=== PATIENT | male | born 1960 | race Caucasian/White ===

== ENCOUNTER → 2017-04-12 09:43 | Outpatient (CLI) | payer OTHER, SELFPAY ==
[2016-11-21 14:26] VITALS: BMI 35.6
[2017-04-12 12:49] LABS: AST(SGOT) 32 U/L (15-37); Alanine Aminotransfer ALT/SGPT 57 U/L (16-61); Albumin, Serum 4.1 g/dL (3.2-5.0); Alkaline Phosphatase 68 U/L (45-117); Bilirubin, Direct 0.12 mg/dL (0.00-0.30); Cholesterol 170 mg/dL (200); Globulin 3.4 g/dL (2.2-4.2); High Density Lipoprotein 30 mg/dL; Protein, Total 7.5 g/dL (6.4-8.2); Triglycerides 556 mg/dL
== END ==
PROVIDERS: Family Provider Family Medicine; PCP Family Medicine; Visit Provider Internal Medicine Cardiovascular Disease
DX: E78.5 Hyperlipidemia, unspecified (principal)
CPT/HCPCS: 36415; 80061; 80076

== ENCOUNTER → 2017-10-24 11:31 | Outpatient (CLI) | payer OTHER, SELFPAY ==
[2016-11-21 14:26] VITALS: BMI 35.6
[2017-10-24 13:45] LABS: AST(SGOT) 25 U/L (15-37); Alanine Aminotransfer ALT/SGPT 53 U/L (16-61); Albumin, Serum 4.1 g/dL (3.2-5.0); Alkaline Phosphatase 63 U/L (45-117); Anion Gap 9 (5-15); BUN 11 mg/dL (7-18); BUN/Creat Ratio 13.4 RATIO (10-20); Bilirubin, Direct 0.11 mg/dL (0.00-0.30); Calcium,Total 9.7 mg/dL (8.5-10.1); Chloride 104 mmol/L (98-107); Cholesterol 193 mg/dL (200); Creatinine, Serum 0.82 mg/dL (0.70-1.30); EST Glomerular Filtration Rate 102 mL/min (>60); Est Glom Filt Rate - Afr Amer 123 mL/min (>60); Globulin 3.4 g/dL (2.2-4.2); Glucose 93 mg/dL (74-106); High Density Lipoprotein 31 mg/dL; Potassium 4.5 mmol/L (3.5-5.1); Protein, Total 7.5 g/dL (6.4-8.2); Sodium Level 141 mmol/L (136-145); Thyroid Stim Hormone (TSH) 1.59 uIU/mL (0.358-3.74); Triglycerides 502 mg/dL
== END ==
PROVIDERS: Family Provider Family Medicine; PCP Family Medicine; Visit Provider Internal Medicine Cardiovascular Disease
DX: E78.5 Hyperlipidemia, unspecified (principal); Z95.5 Presence of coronary angioplasty implant and graft
CPT/HCPCS: 36415; 80048; 80061; 80076; 84443

== ENCOUNTER → 2018-05-23 | Outpatient (CLI) | payer OTHER, SELFPAY ==
[2016-11-21 14:26] VITALS: BMI 35.6
[2018-04-17 10:43] VITALS: BMI 32.8
[2018-05-23 14:44] LABS: AST(SGOT) 22 U/L (15-37); Alanine Aminotransfer ALT/SGPT 43 U/L (16-61); Albumin, Serum 4.5 g/dL (3.2-5.0); Alkaline Phosphatase 48 U/L (45-117); Bilirubin, Direct 0.14 mg/dL (0.00-0.30); Cholesterol 244 mg/dL (200); Globulin 3.2 g/dL (2.2-4.2); High Density Lipoprotein 35 mg/dL; Protein, Total 7.7 g/dL (6.4-8.2); Triglycerides 370 mg/dL; Very Low Density Lipoprotein 74 mg/dL (5-40)
== END | disposition home or self-care (01) ==
PROVIDERS: Family Provider Family Medicine; PCP Family Medicine; Referring Provider Internal Medicine Cardiovascular Disease; Visit Provider Internal Medicine Cardiovascular Disease
DX: E78.5 Hyperlipidemia, unspecified (principal)
CPT/HCPCS: 36415; 80061; 80076

== ENCOUNTER → 2018-11-06 | Outpatient (CLI) | payer OTHER, SELFPAY ==
[2016-11-21 14:26] VITALS: BMI 35.6
[2018-11-06 08:10] VITALS: BMI 33.7
[2018-11-06 16:30] LABS: AST(SGOT) 31 U/L (15-37); Alanine Aminotransfer ALT/SGPT 57 U/L (16-61); Albumin, Serum 4.6 g/dL (3.2-5.0); Alkaline Phosphatase 48 U/L (45-117); Bilirubin, Direct 0.15 mg/dL (0.00-0.30); Cholesterol 264 mg/dL (200); Globulin 3.1 g/dL (2.2-4.2); High Density Lipoprotein 32 mg/dL; Protein, Total 7.7 g/dL (6.4-8.2); Triglycerides 576 mg/dL
== END | disposition home or self-care (01) ==
PROVIDERS: Referring Provider Internal Medicine Cardiovascular Disease; Visit Provider Internal Medicine Cardiovascular Disease
DX: E78.1 Pure hyperglyceridemia (principal); E78.5 Hyperlipidemia, unspecified
CPT/HCPCS: 36415; 80061; 80076

== ENCOUNTER 2019-06-01 18:23 | Emergency (ER) | payer OTHER, SELFPAY ==
[2016-11-21 14:26] VITALS: BMI 35.6
[2019-05-14 10:43] VITALS: BMI 33.3
[2019-06-01 18:24] VITALS: BP 157/96; PULSE 102; RESP 16; TEMP 36.7; O2SAT 96; BMI 34.5
--- NOTE | 2019-06-01 18:33 | EKG12_ITS ---
Test Reason : CP Blood Pressure : / mmHG Vent. Rate : 102 BPM Atrial Rate : 102 BPM P-R Int : 162 ms QRS Dur : 098 ms QT Int : 344 ms P-R-T Axes : 045 -21 072 degrees QTc Int : 448 ms Sinus tachycardia with Premature supraventricular complexes Leftward axis Low voltage QRS (LIMB LEADS) Confirmed by ROSSANA SHAVER, PARESH ([id number]), editor newspaper [employer] NOLASCO ([id number]) on 06/03/2019 10:04:44 AM Referred By: LOWELL Confirmed By:PARESH TRACY MD
[2019-06-01 18:42] VITALS: O2SAT 98
[2019-06-01] MEDS: Aspirin 81 MG TAB.CHEW 324 MG PO (18:48)
--- NOTE | 2019-06-01 18:55 | ED.VISSUMM ---
- ER Visit Summary Date of Service: 06/01/19 Chief Complaint: Chest pain and shortness of breath History of Present Illness: The patient is a 59 M history of CAD with 2 cardiac stents. Also sleep apnea, hypertension, hyperlipidemia and metabolic syndrome. Patient is a semiretired physician. States for the last 3 days has had intermittent left-sided chest discomfort. He is also had shortness of breath and orthopnea at night. He denies any hemoptysis. He denies any pleuritic pain. He is never had a DVT or PE. His last travel was in March. He denies any leg pain or swelling. He denies any exertional chest pain exertional shortness of breath.. He was off his Plavix and aspirin for some time and has recently restarted those. Physical Examination: Older male no acute distress vital signs stable afebrile. Pulse ox 90% room air no signs hypoxia. H EENT exam unremarkable. Neck nontender no JVD. Lungs clear to auscultation bilaterally. Heart regular rhythm rate about 100 no murmur. Chest wall only minimal left-sided tenderness. No ecchymosis or bruising. No subcu air or crepitance. Abdomen soft nontender normal bowel sounds no peritoneal signs. Patient moving all 4 extremities. Equal symmetrical radial pulses. Normal charge weigher strength. Normal dorsi plantarflexion. Calves are nontender without edema or cords. Neurologically is awake alert with no focal motor deficits. Test Results: EKG shows sinus tachycardia rate of 102. No signs of [place] or ischemia. There is any change from prior EKG from 3 years ago. Chest x-ray normal cardiac silhouette mediastinum. Read as normal. CBC white count of 6. Hemoglobin 15. Chemistries unremarkable potassium of 3.1. Normal creatinine and gap. Troponin normal. D-dimer normal. Repeat exam patient is resting comfortably at 2015 p.m. Currently symptom-free. He and I went over all his test results. He understands that this is chest pain without a specific diagnosis. I did explain to him I was concerned because of his history of coronary disease and stents. He does not want to be admitted to the hospital. He will follow-up with his hris coordinator on Monday and follow-up with possible outpatient stress testing. He understands that I cannot rule out this being a cardiac etiology. And knows to return if worse. Emergency Department Course and Treatment: Patient undergo cardiac work-up. His last travel was in March but I will also have them run a d-dimer due to the atypical nature of his chest pain. He has not had any fever or any significant cough. He will be treated with p.o. aspirin. Treatment Plan: Continue his current medications including Plavix and aspirin. Follow-up with his hris coordinator Dr. Bulmaro Moya on Monday. Discuss outpatient stress testing. Return if feeling worse. Disposition: Discharge Impression: Acute chest pain with dyspnea of uncertain etiology History of CAD with 2 cardiac stents in 2017. History of hypertension and hyperlipidemia This note was generated with [employer] dictation software. It may contain incorrect words, spelling, and punctuation that were not noted in review of the chart prior to signing ED Disposition - Plan for ED Patient: Referrals: Care Physician,No Primary [Primary Care Provider] -
[2019-06-01 18:58] LABS: Absolute Lymphocyte Count 1.35 X10^3/uL (0.83-4.51); Absolute Neutrophil Count 3.9 X10^3/uL (2.0-7.7); Basophil# 0.05 X10^3/uL; Basophil% 0.8 % (0-1); Eosinophils% 6.3 % (0-5); Lymphocyte # 1.35 X10^3/ul (4.0); Lymphocyte % 21.3 % (19-41); Mean Corp Hgb Conc 34.9 g/dL (32-36); Mean Corpuscular Hgb 32.3 pg (27.0-32.0); Mean Corpuscular Volume 92.5 fL (80-94); Mean Platelet Vol. 9.8 fl (6.2-12.0); Monocyte# 0.59 X10^3/uL; Monocyte% 9.3 % (0-10); NRBC Flagged by Analyzer 0 % (0-5); Neutrophil # 3.93 X10^3/uL (2.7-7.7); Neutrophil % 61.8 % (47-70); Platelet Count 202 K/mm3 (150-450); RBC Distribution Width CV 12.7 % (11.6-14.6); Red Blood Count 4.65 M/mm3 (4.6-6.2); White Blood Count 6.4 K/mm3 (4.4-11.0)
--- NOTE | 2019-06-01 19:00 | RAD_ITS ---
STUDY: X-RAY CHEST REASON FOR EXAM: Male, 59 years old. CHEST PAIN AND SOB FOR 4 DAYS -- RECENT TRAVEL TO REVERE TECHNIQUE: Single AP portable view of the chest. COMPARISON: 11/21/2016. FINDINGS: The lungs are clear and expanded. Elevated right hemidiaphragm. There is no demonstrated pleural abnormality. Normal size heart. Normal mediastinum and pierce. Normal visualized pulmonary arteries. Normal visualized aortic arch and descending thoracic aorta. Normal visualized thoracic spine. Previous cervical spine surgery. Normal visualized ribs, clavicles, and shoulders. There is no demonstrated abnormality of the visualized soft tissue structures of the upper abdomen. RAD/Chest 1 View (Portable) IMPRESSION: No definite acute or significant abnormality seen. Electronically Signed: Brandan Newton MD at 19:21 EDT , Service support ,
[2019-06-01 19:07] LABS: D-Dimer Quantitative (DVT/PE) 0.29 FEU/ug/m (0.27-0.49)
[2019-06-01 19:14] LABS: Anion Gap 9 (5-15); BUN 12 mg/dL (7-18); BUN/Creat Ratio 14.4 RATIO (10-20); Calcium,Total 10.3 mg/dL (8.5-10.1); Chloride 105 mmol/L (98-107); Creatinine, Serum 0.84 mg/dL (0.70-1.30); EST Glomerular Filtration Rate 99 mL/min (>60); Est Glom Filt Rate - Afr Amer 120 mL/min (>60); Estimated Creatinine Clearance 107.37 ml/min; Glucose 168 mg/dL (74-106); Potassium 3.1 mmol/L (3.5-5.1); Sodium Level 139 mmol/L (136-145)
[2019-06-01 19:29] VITALS: BP 156/91; PULSE 89; RESP 16; O2SAT 98
[2019-06-01 20:05] VITALS: BP 142/92; PULSE 73; RESP 14; O2SAT 95
--- NOTE | 2019-06-01 20:18 | ED.DEP ---
ED Disposition - Plan for ED Patient: Disposition: Home or Assisted Living Instructions: ED Chest Pain Atypical Unkn Cause Referrals: Bulmaro Moya MD [STAFF PHYSICIAN] - As soon as possible Additional Instructions: Make sure you are taking your regular medications especially your Plavix and aspirin. Return if feeling worse. Follow-up with Dr. Moya on Monday. Discussed with him getting a stress test as soon as possible. Take it easy over the weekend no exertional activity.
== END 2019-06-01 20:26 | disposition home or self-care (01) ==
PROVIDERS: Emergency Provider Emergency Medicine
DX: R07.9 Chest pain, unspecified (principal); R06.00 Dyspnea, unspecified; I25.10 Atherosclerotic heart disease of native coronary artery without angina pectoris; I10 Essential (primary) hypertension; E78.5 Hyperlipidemia, unspecified; Z95.5 Presence of coronary angioplasty implant and graft; Z79.02 Long term (current) use of antithrombotics/antiplatelets; Z79.82 Long term (current) use of aspirin; Z79.899 Other long term (current) drug therapy
CPT/HCPCS: 71045; 80048; 84484; 85025; 85379; 93005; 99285

== ENCOUNTER → 2019-06-10 | Outpatient (CLI) | payer OTHER, SELFPAY ==
[2016-11-21 14:26] VITALS: BMI 35.6
[2019-06-01 18:24] VITALS: BMI 34.5
--- NOTE | 2019-06-10 10:28 | STRESSREP ---
Stress Test Report Exercise myocardial perfusion stress test. 59-year-old man with a history of coronary artery disease with previous angioplasty to the left anterior descending artery. History of hypertension, hyperlipidemia, significant hypertriglyceridemia. Stress protocol: Resting EKG demonstrates sinus rhythm with a rate of 63 bpm normal intervals are noted resting blood pressures 140/82 mmHg. The patient exercised on a regular Walter protocol for total duration of 5 minutes and 47 seconds. The maximum heart rate attained was 123 bpm which was 77% of maximum predicted heart rate and a workload of 7 metabolic equivalents. The patient experienced significant dyspnea necessitating termination of the test. It was switched to a pharmacologic myocardial perfusion stress test where he had 0.4 mg of regadenoson infused. Continuous EKG monitoring was performed. The resting blood pressure during the exercise was 140/82 with a peak blood pressure 172/82 mmHg rate-pressure product was 21,100. No clinical angina was noted. Myocardial perfusion protocol. 15.0 mCi of technetium 99m sestamibi was injected at rest. 0.4 mg of regadenoson was infused per usual protocol. At peak infusion 44.6 mCi of technetium 99m sestamibi was injected stress images were obtained stress and rest images were reconstructed and compared in the short axis vertical long horizontal long axis. Gated images were also obtained per Perfusion SPECT analysis: Review of the stress images demonstrate normal perfusion noted in the anterior wall septum and lateral wall. There is a medium defect noted in the inferior wall extending to the inferior lateral wall on the stress images which appears to improve on the resting images suggesting a medium amount of inferolateral ischemia. The gated ejection fraction is 48% on the gated SPECT. Conclusion: Abnormal pharmacologic myocardial perfusion stress test with evidence of inferolateral ischemia. Moderate functional aerobic impairment. Mild reduction in left ventricular ejection fraction
== END | disposition home or self-care (01) ==
LOC: CVS 07:11
PROVIDERS: Referring Provider Internal Medicine Cardiovascular Disease; Visit Provider Internal Medicine Cardiovascular Disease
DX: I25.10 Atherosclerotic heart disease of native coronary artery without angina pectoris (principal); I10 Essential (primary) hypertension; E78.1 Pure hyperglyceridemia; E78.5 Hyperlipidemia, unspecified; Z95.5 Presence of coronary angioplasty implant and graft
CPT/HCPCS: 78452; 93017; A9500; A4216; J2785

== ENCOUNTER 2019-06-14 08:50 | Day surgery (SDC) | payer OTHER, SELFPAY ==
[2016-11-21 14:26] VITALS: BMI 35.6
[2019-06-12 08:58] VITALS: BMI 33.3
--- NOTE | 2019-06-13 12:52 | HP.PCM_ITS ---
History and Physical Date of Admission: 06/14/19 This is a 59-year-old male with a history of coronary artery disease status post angioplasty and stenting of the left anterior descending artery and with residual disease in the other vessels which were nonsignificant and therefore medical therapy would be continued. He does have preserved low ventricular ejection fraction. He does have a history of hypertension, hyperlipidemia with significant hypertriglyceridemia. He gets significant muscle aches from the statins and is not willing to try this anymore. He was also put on Vascepa but he could not afford it. He is therefore trying a diet. Patient presented to [facility] Emergency Department on 06/01/2019 for chest pain and shortness of breath. His EKG was unchanged from previous. There were no acute ST or T wave changes. His troponin was normal. His d-dimer was normal. He proceeded with outpatient stress test on 06/10/2019 that was considered an abnormal pharmacologic myocardial profusion stress test with evidence of inferolateral ischemia, moderate functional aerobic impairment, and mild reduction in left ventricular ejection fraction. Due to his symptoms and abnormal stress test, he will proceed with heart catheterization. Pt denies chest, arm, jaw, or neck discomfort. His exercise tolerance is stable. Pt denies symptoms of CHF, palpitations, lightheadedness, dizziness, near syncopal or syncopal episodes. Pt denies edema or claudication issues. Pt. denies orthopnea, PND, fever, chills, blood in urine, blood in stool, myalgia, or unexplainable fatigue. Intake Vital Signs: See EMR Intake Visit Reasons: [facility] Allergies ticagrelor [From Brilinta] Allergy (Severe, Verified 05/14/19 10:44) purple rash/petechia atorvastatin [From Lipitor] Adverse Reaction (Intermediate, Verified 05/14/19 10:44) myalgias amlodipine Adverse Reaction (Verified 05/14/19 10:46) 3+ pitting edema and chest heaviness at higher 10mg rosuvastatin [From Crestor] Adverse Reaction (Verified 05/14/19 10:48) myalgia Medications See EMR Ejection fraction %: [facility] Medical History Atherosclerotic heart disease of [place] coronary artery without angina pectoris (Chronic) Essential (primary) hypertension (Chronic) Hypertriglyceridemia (Chronic) Hyperlipidemia (Chronic) Obesity (Chronic) Surgical History History of coronary artery stent placement (Resolved 11/21/16) History of neck surgery (Chronic) Family History Father CAD (coronary artery disease) Social History (Updated 05/14/19 @ 11:[address] Bulmaro Moya MD) Smoking Status: Never smoker ROS Const Const: Negative for fatigue, weakness, headache(s), frequent falls, difficulty sleeping or excessive sweating Eyes Eyes: Negative for loss of peripheral vision, transient loss of vision, blurry vision, double vision or tunnel vision ENT ENT: Negative for headache(s), dizziness, Nosebleed/epistaxis or balance problems Cardio Chest Pain: No Palpitations: No Edema: None Muscle aches with walking: None Resp Respiratory: Negative for SOB with activity, SOB at rest, SOB orthopnea\SOB lying down, Cough or paroxysmal nocturnal dyspnea GI GI: Negative nausea, vomiting, heartburn or black,tarry stools : Negative for hematuria Musc Musc: Negative for muscle aches/ myalgia, muscle weakness, joint pain or balance problems Skin Skin: Negative non-healing lesions, rash or unusual bruising Neuro Neuro: Negative for dizziness, lightheadedness, near syncope, syncope, orthostatic symptoms, frequent falls, headache(s), weakness, blurry vision, double vision or lack of coordination Federico Hematologic/Lymphatic: Negative for easy bleeding or easy bruising Endo Endo: Negative for fatigue, excessive sweating or increased thirst/drinking Psych Psych: Negative for anxiety or depression Allergy Allergy/Immunology: Negative for hives, Negative for rash Cardiology Exam Const Appearance: cooperative, healthy appearing, no acute distress, well developed and well groomed Nutritional Appearance: average body habitus and well nourished Orientation: alert, awake and oriented x3 Head Head: normal to inspection, normocephalic and atraumatic Ears: hearing grossly normal bilaterally and external ears normal Nose: external nose normal, nares normal, nasal mucous membranes and turbinates normal, septum normal, no nasal discharge Face and Sinus: face symmetric Mouth: oral mucosae normal, tongue normal, oropharynx normal and moist mucous membranes Teeth and gingiva: dentition normal Throat: posterior oropharynx normal, tonsils normal and uvula midline Eyes General: appearance normal, both eyes and all related structures Eyelids: eyelids normal Conjunctivae: conjunctivae normal Pupils: PERRL, normal by confrontation and accommodation normal EOM: EOM intact bilaterally Neck Neck: normal visual inspection, trachea midline and no JVD JVD: +5 Carotids: normal carotid upstroke and bounding pulses Chest Chest inspection: normal inspection of the chest, symmetric chest movement and normal respiratory effort Auscultation: Bilateral: Clear to Auscultation Cardio Palpation: normal PMI Rate: regular rate Rhythm: regular rhythm Heart sounds: S1 normal, S2 normal and normal, physiologic split S2; negative rub, gallop or murmur GI GI: normal to inspection, soft, no hepatosplenomegaly and bowel sounds present Neuro General: alert, awake, oriented x3, gait normal, moves all extremities and no focal sensory deficit Skin Skin: no rashes or lesions noted Extremities Pulses: Normal: Right Femoral Pulse, Left Femoral Pulse, Right Dorsalis Pedis Pulse, Left Dorsalis Pedis Pulse, Right Posterior Tibial Pulse, Left Posterior Tibial Pulse, Right Radial Pulse, Left Radial Pulse Lower Extremity Edema: None: Bilateral Musculoskel Musculoskeletal: No joint tenderness Psych Psychological: normal affect Assessment & Plan 1. History of coronary artery stent placement Z95.5 PCI-MOON-Mid LAD w/ 2.5 x 30 mm Resolute Integrity Stent and MOON-Distal LAD w/ 2.25 a 14 mm Resolute Integrity Stent 11/21/16 Plan He does have a history of coronary artery stenting. Due to abnormal stress test, he will proceed with left heart catheterization. Based on results, further recommendation be made. 2. Essential (primary) hypertension I10 Plan His blood pressure appears to be under good control on the current medical regimen. The plan will be for us to continue the same without changes. 3. Pure hypercholesterolemia E78.00 Plan He does have a history of hyperlipidemia. He is scheduled to have a repeat lipid profile and depending on the those findings further recommendations will be made. I have discussed with him about various diets that he can pursue. I will consider setting him up with [facility] sometime in June. This note was generated using a voice recognition system and there may be incorrect words, spelling or punctuation that were not noted when reviewing the office note prior to saving.
[2019-06-14] VITALS (19 sets, daily range): BP systolic 140–159; BP diastolic 80–97; PULSE 66–86; RESP 11–19; TEMP 36.2–36.7; O2SAT 96–99; BMI 32.7
[2019-06-14 09:21] LABS: PTHIN 56.9 pg/mL (18.4-80.1)
[2019-06-14 09:24] LABS: Anion Gap 4 (5-15); BUN 13 mg/dL (7-18); BUN/Creat Ratio 14.2 RATIO (10-20); Calcium,Total 9.7 mg/dL (8.5-10.1); Chloride 107 mmol/L (98-107); Creatinine, Serum 0.92 mg/dL (0.70-1.30); EST Glomerular Filtration Rate 89 mL/min (>60); Est Glom Filt Rate - Afr Amer 108 mL/min (>60); Estimated Creatinine Clearance 98.03 ml/min; Glucose 102 mg/dL (74-106); Potassium 4.2 mmol/L (3.5-5.1); Sodium Level 139 mmol/L (136-145)
--- NOTE | 2019-06-14 12:01 | CL.D_ITS ---
Patient Name: MONTEZ MANZO Study Date: 06/14/2019 Performing: Bulmaro Moya MD Ht: 74.01 inches 188 cm : 1960 Wt: 260.15 lbs 118 kg Age: 59 Gender: male BSA: 2.43 PROCEDURE(S) PERFORMED IN13-OYB/COR/LV US20-EDW W OR WO PTCA, SINGLE CORONARY ARTERY CLINICAL PROFILE AND INDICATIONS Indications: Suspected CAD Heart Failure: None Stress/Imaging Date: 06/10/2019Stress Test with SPECT MPI: Positive High Risk CAD Presentations: Unstable angina. CONCLUSIONS Severe single vessel disease with RCA . Patent stent in the LAD RECOMMENDATIONS Referred for immediate PCI DESCRIPTION OF PROCEDURE The patient arrived to the procedure lab. The risks and benefits of the procedure as well as a full d escription of our services here and current unavailability of surgical backup were fully explained to the patient and/or their significant other prior to the catheterization. The Timeout was completed, verifying the correct patient and procedure. The patient's procedural site was prepped and draped in the usual fashion. Local anesthetic was given subcutaneously to right groin region with Lidocaine 2%. Using a modified Seldinger technique, arterial access was obtained via the right femoral artery, a 5 Fr sheath was inserted. Left Coronary Artery selective angiography was performed in multiple views u sing a 5 Fr. JL4 catheter. Right Coronary Artery selective angiography was then performed in multiple views using a 5 Fr. 3DRC (Noam) catheter. Left Ventriculography was performed in LAWSON projection using a 5 Fr. Pigtail catheter. LV to AO pullback pressures were then recorded. CORONARY ANGIOGRAPHY DOMINANCE: Right Dominant LEFT HEART ASSESSMENT Left Ventricular Ejection Fraction: by LV Gram 65 % Normal LV wall motion Normal Left Ventricular systolic function LEFT MAIN: Angiographically normal LEFT ANTERIOR DESCENDING ARTERY: MID LAD: Moderate luminal irregularities up to 50%, Previously placed stent is patent CIRCUMFLEX ARTERY: Mild luminal irregularities RIGHT CORONARY ARTERY: PROX RCA: 80 % Stenosis COMPLICATIONS PROCEDURE MEDICATIONS Versed 1 mg IV Versed 1 mg IV Versed 1 mg IV Versed 1 mg IV Oxygen: 2 L/min via nasal cannula Heparin 6000 unit(s) IV 06/14/2019 11:41:53 SUMMARY OF HEMODYNAMIC DATA Time AIR REST ECG 09:14:12 AO 133/82 (104) SA 11:17:17 LV 124/9, 15 11:26:49 LV 136/11, 18 11:26:55 LV 132/13, 18 11:27:46 LVp 134/17, 20 11:27:50 AOp 132/77 (100) 11:27:55 AO 127/76 (98) 11:44:22 Signed By Bulmaro Moya MD On 06/14/2019 12:01:25 Bulmaro Moya MD
[2019-06-14 12:56] LABS: ACT Activated Clotting Time 125 sec (74-137)
--- NOTE | 2019-06-14 13:11 | EKG12_ITS ---
Test Reason : POST PCI Blood Pressure : / mmHG Vent. Rate : 076 BPM Atrial Rate : 076 BPM P-R Int : 166 ms QRS Dur : 096 ms QT Int : 406 ms P-R-T Axes : 031 005 053 degrees QTc Int : 456 ms Normal sinus rhythm Normal ECG When compared with ECG of 01-JUN-2019 18:31, Premature supraventricular complexes are no longer Present Confirmed by GERTRUDE SHAVER, JORGE ([id number]), editor sound [employer] NOLASCO ([id number]) on 06/19/2019 10:23:46 AM Referred By: Jorge Moya Confirmed By:JORGE MOYA MD
[2019-06-14] MEDS: 0.9% Normal Saline 1,000 ML 150 ML IV (13:21)
[2019-06-14] MEDS: Morphine 4 MG/ML Syringe IV ×2 (13:21→18:03)
[2019-06-14] MEDS: Acetaminophen 325 MG Tablet 650 MG PO ×2 (13:58→20:15)
--- NOTE | 2019-06-14 14:50 | CRPHASE1_ITS ---
Patient Communication PHII Cardiac Rehab Discussed with Patient:: Yes Guide to Cardiac Rehab Given to Patient:: Yes Cardiac Rehab Facility Choice List Given to Patient:: Yes Choice Program [facility] CR PHII:: Communication Given to CR, Refer to [facility] Microbiology Quality Control Technician:: Kendrick Green Refer Phase II Cardiac Rehab:: Yes - to take place after discharge Sessions:: 36 sessions - 3 days/wk, 12 weeks Risk Factors/Lifestyle Family History: Family History (Last Reviewed 05/14/19 @ 11:[address] Bulmaro Moya MD) Father CAD (coronary artery disease) Cardiac Rehabilitation Info Cardiac Rehabilitation Program Information: Cardiac Rehabilitation is important for patients like you who are recovering from a heart problem. Cardiac rehabilitation programs are recognized as integral to the continued care of the patient with coronary heart disease. The cardiac rehabilitation program is designed to optimize a patient's physical, psychological, and social functioning. Health career resource technician work in cardiac rehabilitation programs and assist you with getting the treatments you need to get stronger and healthier - like exercise, healthy eating habits, and medications. Cardiac rehabilitation has been show to help people with heart problems live longer and have better life enjoyment than people who do not go to cardiac rehabilitation. Please contact the Cardiac Rehabilitation Program at [facility] at in two weeks if you have not heard from them.
--- NOTE | 2019-06-14 14:53 | CRPH1.INSTRU ---
General Education CAD and cardiac anatomy and function:: Needs reinforcement Explanation of diagnoses and procedures:: Needs reinforcement Sign/Symptoms of [place]:: Needs reinforcement Antiplatelet therapy: Needs reinforcement Proper use of NTG-SL: Not instructed Emergency procedures and activation of EMS: Needs reinforcement Compliance of all prescribed medications: Needs reinforcement - Pt given A giude to Cardiac Rehab booklet Dyslipidemia Patient Dyslipidemia Risk Factors Are:: Total Cholesterol, Triglycerides, HDL Recommendations Include:: Therapeutic Lifestyle Change dietary guidelines Dyslipidemia Response Code:: Needs reinforcement Overweight/Obesity Patient Overweight/Obesity Risk Factors Are:: Obesity - > or = 30 Recommendations Include:: Weight loss of 5-10%, Reduced calorie diet, Exercise 5-7 times/week Overweight/Obesity:: Needs reinforcement Hypertension Recommendations Include:: Maintain BP <130/85, DASH dietary guidelines, Decrease/maintain normal body weight, Moderation of ETOH Hypertension:: Needs reinforcement Heart Disease Patient Heart Disease Risk Factors Are:: Family history of heart disease < 65 years old, Previous cardiac event Heart Disease Response Code:: Needs reinforcement Metabolic Syndrome Patient Metabolic Syndrome Risk Factors Are [3 of 5]:: High triglyceride >150, Hypertension, Low HDL <40 [male] or < 50 [female] Recommendations Include:: Reinforce compliance to risk factor modifications, Encouraged follow-up with Primary Care Physician Metabolic Syndrome Response Code:: Needs reinforcement
--- NOTE | 2019-06-14 15:09 | CL.I_ITS ---
Patient Name: MONTEZ MANZO Study Date: 06/14/2019 Performing: Kendrick Green MD Ht: 74 inches 188 cm : 1960 Wt: 260.5 lbs 118 kg Age: 59 Gender: male BSA: 2.43 PROCEDURE(S) PERFORMED [id number] W OR WO PTCA, SINGLE CORONARY ARTERY CLINICAL PROFILE AND CO-MORBIDITIES Indications: Suspected CAD, New Onset Angina <= 2 months, Stable Known CAD Heart Failure: None Stress/Imaging Date: 06/10/2019 Stress Test with SPECT MPI: Positive High Risk Angina Classification Anginal Classification w/in 2 Weeks: CCS III CAD Presentations: Unstable angina. Unstable angina. Comorbidities/Risk Factors: Hypertension Dyslipidemia Prior PCI CONCLUSIONS Successful PTCA/MOON to proximal/mid RCA utilizing a 4.0 x 16 Promus Synergy x 2, all post dilated wit h a 5.0 x 8 NC Balloon; 85%-->0%, no dissection, all requiring a long 55 cm sheath, AL-1 guide, guide liner and double wire technique. RECOMMENDATIONS Highly recommend quitting all tobacco products Follow up with primary acid extractor Risk factor modification ASA Indefinitley Plavix for at least 12 months Routine post interventional care Refer for Outpatient Cardiac Rehab Manual sheath removal per protocol Follow up with Dr. Moya Successful Mynx Control closure of RFA. DESCRIPTION OF PROCEDURE The patient arrived to the procedure lab. The risks and benefits of the procedure as well as a full d escription of our services here and current unavailability of surgical backup were fully explained to the patient and/or their significant other prior to the catheterization. The Timeout was completed, verifying the correct patient and procedure. The patient's procedural site was prepped and draped in the usual fashion. Local anesthetic was given subcutaneously to right groin region with Lidocaine 2% Using a modified Seldinger technique,arterial access was obtained via the right femoral artery, a 5Fr sheath was inserted. Left Coronary Artery selective angiography was performed in multiple views usin g a 5 Fr. JL4 catheter. Right Coronary Artery selective angiography was then performed in multiple vi ews using a 5 Fr. 3DRC (Noam) catheter. Left Ventriculography was performed in LAWSON projection usi ng a 5 Fr. Pigtail catheter. LV to AO pullback pressures were then recorded.The images were reviewed and options discussed. A decision was then made to proceed with an Intervention, IVUS o r other adjunct procedure. Arterial sheath was exchanged for a 6 Fr Sheath, 55cm. Runthrough Guide wire was advanced to the RCA. BMW Guide wire was inserted as a clarice wire Emerge 2.5x12 Balloon catheter was advanced across l esion in the right coronary, proximal. Angiogram performed pre balloon dilatation. PTCA balloon infla [place] at 8 atms for 20 secs. PTCA balloon inflated at 10 atms for 16 secs. Angiogram performed post bal loon dilatation. Synergy 4.0x16 Drug Eluting stent was advanced across the lesion in the right morgan ry, proximal. Drug Eluting stent was removed intact, failed to cross lesion 4.0 x 16 synergy Drug Elu ting stent was advanced across the lesion in the right coronary, proximal. 4.0 x 16 Synergy Drug Elut ing stent was advanced across the lesion in the right coronary, proximal. 5.0 x 8 NC Emerge Balloon c atheter was inserted post stent. 4.0 x 8 NC Emerge Balloon catheter was inserted post stent. 5.0 x 8 NC Emerge Balloon catheter was inserted post stent. Angiogram performed post stent deployment. Arterial sheath was exchanged for a 6 Fr, 11cm Sheath. The arterial sheath was pulled and a Mynx closure device was deployed for hemostasis INTERVENTION INFORMATION LESION SITE: RCA (Proximal) Lesion Complexity: High/C, lesion at bifurcation: No, thrombus present: No, lesion length: 32 mm, cul prit lesion: Yes Pre Stenosis: 85 % Pre intervention ROBERTA flow: 3 PROCEDURE: Drug Eluting Stent with pre and post dilatation Post Stenosis: 0 % Post intervention ROBERTA flow: 3 Lesion Devices: Omalley .014 BMW [place] Straight 190cm Medtronic 6 Fr AL1.0 100cm Guide Catheter Terumo .014 Runthrough Extra Floppy 180cm straight Joey Sci EMERGE MR 2.50x12 BALLOON Joey Sci Synergy MR MOON 4.00x16 Vascular Solutions 6 Kinyarwanda GuideLiner Joey Sci Synergy MR MOON 4.00x16 Joey Sci NC EMERGE MR 5.00x08 BALLOON Joey Sci NC EMERGE MR 4.00x08 BALLOON COMPLICATIONS No Complications PROCEDURE MEDICATIONS Versed 1 mg IV Versed 1 mg IV Versed 1 mg IV Versed 1 mg IV Oxygen: 2 L/min via nasal cannula Heparin 6000 unit(s) IV 06/14/2019 11:41:53 Nitro 200 mcg IC 06/14/2019 12:25:24 IV Bolus: .9 NaCl 750 ml total 06/14/2019 12:35:33 SUMMARY OF HEMODYNAMIC DATA Time AIR REST ECG 09:14:12 AO 133/82 (104) SA 11:17:17 LV 124/9, 15 11:26:49 LV 136/11, 18 11:26:55 LV 132/13, 18 11:27:46 LVp 134/17, 20 11:27:50 AOp 132/77 (100) 11:27:55 AO 127/76 (98) 11:44:22 Signed By Kendrick Green MD On 06/14/2019 15:08:09 Kendrick Green MD
[2019-06-14] MEDS: 0.9% Saline Lock 10 ML Syringe IV (18:04)
[2019-06-14] MEDS: Temazepam 15 MG Capsule 30 MG PO (21:09)
[2019-06-15] VITALS (12 sets, daily range): BP systolic 118–162; BP diastolic 63–101; PULSE 63–89; RESP 12–20; TEMP 36.5–37.1; O2SAT 93–97
[2019-06-15 05:07] LABS: Hematocrit 39.5 % (40-54); Hemoglobin 13.8 g/dL (13.0-16.5); Mean Corp Hgb Conc 34.9 g/dL (32-36); Mean Corpuscular Hgb 33.3 pg (27.0-32.0); Mean Corpuscular Volume 95.2 fL (80-94); Mean Platelet Vol. 9.6 fl (6.2-12.0); Platelet Count 146 K/mm3 (150-450); RBC Distribution Width CV 12.8 % (11.6-14.6); RBC Distribution Width SD 43.8 fl (35.1-43.9); Red Blood Count 4.15 M/mm3 (4.6-6.2); White Blood Count 5.5 K/mm3 (4.4-11.0)
[2019-06-15 05:25] LABS: ALB/GLOB Ratio 1.2 RATIO (0.9-2.4); AST(SGOT) 38 U/L (15-37); Alanine Aminotransfer ALT/SGPT 78 U/L (16-61); Albumin, Serum 3.8 g/dL (3.2-5.0); Alkaline Phosphatase 51 U/L (45-117); Anion Gap 7 (5-15); BUN 7 mg/dL (7-18); BUN/Creat Ratio 11.2 RATIO (10-20); Chloride 109 mmol/L (98-107); Creatinine, Serum 0.62 mg/dL (0.70-1.30); EST Glomerular Filtration Rate 139 mL/min (>60); Est Glom Filt Rate - Afr Amer 168 mL/min (>60); Estimated Creatinine Clearance 145.47 ml/min; Globulin 3.1 g/dL (2.2-4.2); Glucose 87 mg/dL (74-106); Potassium 3.6 mmol/L (3.5-5.1); Protein, Total 6.9 g/dL (6.4-8.2); Sodium Level 138 mmol/L (136-145)
[2019-06-15] MEDS: Aspirin E.C. 81 MG Tablet PO (07:43)
[2019-06-15] MEDS: Losartan Potassium 100 MG Tablet PO (07:44)
[2019-06-15] MEDS: Carvedilol 12.5 MG Tablet PO (07:44)
[2019-06-15] MEDS: hydroCHLOROthiazide 12.5mg 12.5 MG PO (07:45)
[2019-06-15] MEDS: Clopidogrel Bisulfate 75 MG Tablet PO (07:46)
--- NOTE | 2019-06-15 09:26 | PN.CARD_ITS ---
Subjectve: Patient seen and evaluated. Had uneventful night. No chest pain or shortness of breath. Says he cannot tolerate beta-steven. Objective: Vital Signs Temp Pulse Resp BP Pulse Ox 98.8 F 79 14 143/98 H 96 06/15/19 08:00 06/15/19 09:00 06/15/19 09:00 06/15/19 09:00 06/15/19 09:00 Oxygen Flow Rate (L/min) 2 Oxygen Delivery Method Room Air Weight: 253 lb 15.56 oz Body Mass Index (BMI) 32.7 Intake and Output for Last 24 Hours 06/13/19 06/14/19 06/15/19 23:59 23:59 23:59 Intake Total 1000 / 1240 480 / 480 Output Total 400 / 700 1275 / 1275 Balance 600 / 540 -795 / -795 General: Awake, Alert, Oriented x 3 HEENT: PERRL, EOMI, Sclera Non Icteric Neck: Supple, Good ROM, No Lymph Node Enlargement Lungs: Clear to auscultation Cardiovascular: Regular Rhythm, Normal S1, Normal S2, No Murmurs, No Rubs, No Gallops Vascular: No Carotid Bruits, Normal Femoral Pulses, Normal Radial Pulses, Normal Dorsalis Pedal Pulse, Normal Posterior Tibial Pulses Abdomen: Bowel Sounds Present, Soft, Non Tender, No HSM, No Organomegaly Extremities: No Cyanosis, No Clubbing, No edema Neurological: No Focal Motor or Sensory Deficit 06/15/19 05:00: WBC 5.5, RBC 4.15 L, Hgb 13.8, Hct 39.5 L, MCV 95.2 H, MCH 33.3 H, MCHC 34.9, Plt Count 146 L, MPV 9.6 06/15/19 05:00: Sodium 138, Potassium 3.6, Chloride 109 H, Carbon Dioxide 22.0, Anion Gap 7, BUN 7, Creatinine 0.62 L, Est GFR (MDRD) Af Amer 168, Est GFR (MDRD) Non-Af 139, BUN/Creatinine Ratio 11.2, Glucose 87, Calcium 9.0, Total Bilirubin 0.80 Rhythm: EKG: ECHO: Stress Test: Cardiac Cath: PCI: CT Surgery: Holter monitor: EPS: PPM: CXR: Chest CT Scan: Medical Necessity - Tobacco Use Smoking Status: Former smoker Assessment/Plan 1. Status post angioplasty and stenting of a large right coronary artery. Patient did well overnight. EKG no changes noted. Laboratory test stable. Would recommend discharge for outpatient follow-up. 2. Hypertension * Blood pressure uncontrolled. * Would recommend continue losartan and hydrochlorothiazide * Patient has not tolerated beta-steven or calcium channel steven * Would like to observe blood pressures at home for a bit before changing any other medications * 3. Hypertriglyceridemia * Would consider the Vascepa 2 g twice a day * * Will DC later this morning
--- NOTE | 2019-06-15 09:37 | PCM.DC.CCA ---
Discharge Diet: Low fat/ Low Cholesterol Discharge Activity: Return to Normal Activity Call your doctor if your incision/area has: Increased Pain/ Swelling, Increased Redness, Foul Smelling Discharge, Swelling at the incision site Call your doctor if you observe: Fever of 101 or Higher Additional Dressing/Incision Instructions:: Keep the dressing (bandage) on until the next morning. You may then shower, but do not take a tub bath for 5 days after your test. It is normal to have some tenderness and discomfort at the puncture site. Sometimes bruising also occurs. However, if pain, numbness, or coldness occurs below the puncture site (in your leg, toes, arms or fingers) call your doctor at once. You may have a small, marble sized knot at the puncture site. This is normal. Do not rub it. It will go away in 4-6 weeks. Bleeding can occur from the area where the puncture was done. Blood may spurt or drip from the site. If blood spurts, apply pressure right away to stop bleeding and call 911. Although rare, bleeding into the tissue (hematoma) can also occur. If this happens, a large, firm area goose egg under the skin will appear. If any of these occur, lie down as flat as you can and have someone apply firm pressure to the cath site with a gauze pad or a clean washcloth for 10-15 minutes. Call 911 or go to the Emergency Department. Allergies/Adverse Reactions: Allergies atorvastatin [From Lipitor] Allergy (Verified 06/01/19 18:33) Shortness of breath rosuvastatin [From Crestor] Allergy (Verified 06/01/19 18:33) Rash ticagrelor [From Brilinta] Allergy (Verified 06/01/19 18:33) Rash Medications to take at Discharge Aspirin E.C. [Ecotrin] 81 mg PO DAILY@0800 #90 tab 11/22/16 clopidogrel 75 mg tablet See Rx Instructions PO QDAY #90 tab 04/11/17 losartan 100 mg tablet 100 mg PO DAILY 04/17/18 Omeprazole Magnesium [Prilosec Otc] 20 mg PO PRN PRN 06/14/19 Hydrochlorothiazide [Hctz] 25 mg PO DAILY tab 06/15/19 Icosapent Ethyl [Vascepa] 2 gm PO BID #60 cap 05/09/20 The following prescriptions were given: Icosapent Ethyl [Vascepa] 2 gm PO BID #60 cap [facility]: [id number] Orders to be completed after discharge: Phase II, Outpatient Cardiac Rehab Location: None Selected Primary Care Physician: Care Physician,No Primary [Primary Care Provider] - Test Results: Test results from this visit will be discussed in further detail at your follow-up appointment, if applicable. When: nick phone visit in 2 weeks Proposed Discharge Date: 06/15/19 Cardiac Rehabilitation Info Cardiac Rehabilitation Program Information: Cardiac Rehabilitation is important for patients like you who are recovering from a heart problem. Cardiac rehabilitation programs are recognized as integral to the continued care of the patient with coronary heart disease. The cardiac rehabilitation program is designed to optimize a patient's physical, psychological, and social functioning. Health manager medicare work in cardiac rehabilitation programs and assist you with getting the treatments you need to get stronger and healthier - like exercise, healthy eating habits, and medications. Cardiac rehabilitation has been show to help people with heart problems live longer and have better life enjoyment than people who do not go to cardiac rehabilitation. Please contact the Cardiac Rehabilitation Program at [facility] at in two weeks if you have not heard from them.
[2019-06-15] MEDS: hydroCHLOROthiazide 25 MG Tablet 12.5 MG PO (09:50)
[2019-06-15 09:55] LABS: Cholesterol 189 mg/dL (200); High Density Lipoprotein 26 mg/dL; Triglycerides 290 mg/dL; Very Low Density Lipoprotein 58 mg/dL (5-40)
--- NOTE | 2019-06-15 10:00 | EKG12_ITS ---
Test Reason : AM EKG Blood Pressure : / mmHG Vent. Rate : 081 BPM Atrial Rate : 081 BPM P-R Int : 166 ms QRS Dur : 094 ms QT Int : 396 ms P-R-T Axes : 042 -03 055 degrees QTc Int : 460 ms Normal sinus rhythm Normal ECG When compared with ECG of 14-JUN-2019 13:04, MANUAL COMPARISON REQUIRED, DATA IS UNCONFIRMED Confirmed by GERTRUDE SHAVER, JORGE ([id number]), digital editor AURA NOLASCO ([id number]) on 06/19/2019 10:23:36 AM Referred By: Jorge Moya Confirmed By:JORGE MOYA MD
== END 2019-06-15 10:15 | disposition home or self-care (01) ==
LOC: CLSP 08:51 → ICU 13:36
PROVIDERS: Internal Medicine Cardiovascular Disease; Referring Provider Internal Medicine Cardiovascular Disease; Visit Provider Internal Medicine Cardiovascular Disease
DX: I25.110 Atherosclerotic heart disease of native coronary artery with unstable angina pectoris (principal); I10 Essential (primary) hypertension; E78.1 Pure hyperglyceridemia; E66.9 Obesity, unspecified; Z68.32 Body mass index [BMI] 32.0-32.9, adult; Z87.891 Personal history of nicotine dependence; Z95.5 Presence of coronary angioplasty implant and graft
CPT/HCPCS: 36415; 80048; 80053; 80061; 83970; 85027; 85347; 92928; 93005; 93458; 99152; 99153; C1760; J7030; J7040; Q9967; A4216; C1725; C1769; C1874; C1887; C1894; C9600

== ENCOUNTER → 2019-11-20 | Outpatient (CLI) | payer OTHER, SELFPAY ==
[2016-11-21 14:26] VITALS: BMI 35.6
[2019-11-12 10:22] VITALS: BMI 33.3
[2019-11-20 09:55] LABS: Absolute Lymphocyte Count 1.31 X10^3/uL (0.83-4.51); Absolute Neutrophil Count 2.6 X10^3/uL (2.0-7.7); Basophil# 0.03 X10^3/uL; Basophil% 0.7 % (0-1); Eosinophil# 0.13 X10^3/uL; Eosinophils% 2.8 % (0-5); Hemoglobin 14.3 g/dL (13.0-16.5); Lymphocyte # 1.31 X10^3/ul (4.0); Lymphocyte % 28.6 % (19-41); Mean Corp Hgb Conc 34.9 g/dL (32-36); Mean Corpuscular Hgb 32.6 pg (27.0-32.0); Mean Corpuscular Volume 93.6 fL (80-94); Mean Platelet Vol. 10.4 fl (6.2-12.0); Monocyte# 0.45 X10^3/uL; Monocyte% 9.8 % (0-10); NRBC Flagged by Analyzer 0 % (0-5); Neutrophil # 2.63 X10^3/uL (2.7-7.7); Neutrophil % 57.4 % (47-70); Platelet Count 208 K/mm3 (150-450); RBC Distribution Width CV 12.8 % (11.6-14.6); RBC Distribution Width SD 43.7 fl (35.1-43.9); Red Blood Count 4.38 M/mm3 (4.6-6.2); White Blood Count 4.6 K/mm3 (4.4-11.0)
[2019-11-20 10:14] LABS: Hemoglobin A1c 4.8 % (3.8-5.6)
[2019-11-20 10:25] LABS: AST(SGOT) 22 U/L (15-37); Alanine Aminotransfer ALT/SGPT 47 U/L (16-61); Albumin, Serum 4.3 g/dL (3.2-5.0); Alkaline Phosphatase 77 U/L (45-117); Anion Gap 7 (5-15); BUN 13 mg/dL (7-18); BUN/Creat Ratio 16.2 RATIO (10-20); Bilirubin, Direct 0.16 mg/dL (0.00-0.30); Calcium,Total 9.8 mg/dL (8.5-10.1); Chloride 105 mmol/L (98-107); Cholesterol 204 mg/dL (200); EST Glomerular Filtration Rate 104 mL/min (>60); Est Glom Filt Rate - Afr Amer 126 mL/min (>60); Globulin 3.3 g/dL (2.2-4.2); Glucose 105 mg/dL (74-106); High Density Lipoprotein 36 mg/dL; Potassium 3.8 mmol/L (3.5-5.1); Protein, Total 7.6 g/dL (6.4-8.2); Sodium Level 139 mmol/L (136-145); Triglycerides 548 mg/dL
[2019-11-20 10:36] LABS: PSA,Total - Annual Screen 2.13 ng/mL (0.00-4.00)
== END | disposition home or self-care (01) ==
LOC: MTLAB 08:48
PROVIDERS: PCP Internal Medicine; Referring Provider Internal Medicine Cardiovascular Disease; Visit Provider Internal Medicine Cardiovascular Disease
DX: E78.1 Pure hyperglyceridemia (principal); E78.5 Hyperlipidemia, unspecified; I10 Essential (primary) hypertension; I25.10 Atherosclerotic heart disease of native coronary artery without angina pectoris; Z95.5 Presence of coronary angioplasty implant and graft; Z12.5 Encounter for screening for malignant neoplasm of prostate
CPT/HCPCS: 36415; 80048; 80061; 80076; 83036; 84153; 85025; G0103

== ENCOUNTER 2020-03-23 22:55 | Emergency (ER) | payer OTHER, SELFPAY ==
[2016-11-21 14:26] VITALS: BMI 35.6
[2019-11-12 10:22] VITALS: BMI 33.3
[2020-03-23 22:55] VITALS: BP 144/89; PULSE 85; RESP 18; TEMP 36.2; O2SAT 96; BMI 30.8
--- NOTE | 2020-03-23 23:11 | EKG12_ITS ---
Test Reason : CP Blood Pressure : / mmHG Vent. Rate : 092 BPM Atrial Rate : 092 BPM P-R Int : 146 ms QRS Dur : 100 ms QT Int : 364 ms P-R-T Axes : 056 012 065 degrees QTc Int : 450 ms Normal sinus rhythm Normal ECG Confirmed by ROSSANA SHAVER, PARESH ([id number]), design editor CEZAR DAVALOS ([id number]) on 03/26/2020 1:43:14 PM Referred By: SHADIA Confirmed By:PARESH TRACY MD
--- NOTE | 2020-03-23 23:11 | RAD_ITS ---
STUDY: X-RAY CHEST REASON FOR EXAM: Male, 59 years old. FATIGUE, CHEST PAIN AND DIZZINESS X 2 WEEKS. 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 TECHNIQUE: Single AP portable view of the chest. COMPARISON: JUNE 01, 2019 FINDINGS: Cervical spine hardware reidentified. The lungs are clear and expanded. There is no demonstrated pleural abnormality. Normal size heart. Normal mediastinum and pierce. Normal visualized pulmonary arteries. Normal visualized aortic arch and descending thoracic aorta. There are diffuse degenerative changes of the visualized thoracic spine. Normal visualized ribs, clavicles, and shoulders. There is no demonstrated abnormality of the visualized soft tissue structures of the upper abdomen. RAD/Chest 1 View (Portable) IMPRESSION: Normal x-ray examination of the chest. Electronically Signed: Sushil Dunn MD at 23:49 EST , Service support ,
--- NOTE | 2020-03-23 23:40 | ED.DCSUM_ITS ---
History of Present Illness Chief Complaint: Chest Pain Informant: Patient Onset: Today Quality: Tightness Location: - - diffuse Worsened By: Nothing Relieved By: Nothing Associated Symptoms: Nausea Narrative: Patient is a 59-year-old male with history of coronary artery disease status post stents x2 presenting with concerns of reaction to Vistaril as well as episodes of chest pressure. Patient states 2 weeks ago he tried to take himself off his CPAP. He states he been on for 10 years before that. He notes he has had about a 20 pound intentional weight loss secondary to exercise and diet changes over the past few months. He was having a hard time sleeping so he restarted his CPAP about 3 days ago. He called his primary care doctor, and spoke to the INSPECTING SUPERVISOR who called him in [place]. Patient took it for the first time tonight. He states he woke up feeling terrible and having a nightmare versus a hallucination. Patient states he was unable to put his CPAP on because he fell asleep after taking the medication. He tried to make himself throw up but was unsuccessful. Patient states he does not feel right. In addition patient s maximus he has had intermittent episodes of tightness across his chest for the past few weeks. He denies any sharp chest pain. He denies any shortness of breath or dyspnea on exertion. Denies any swelling of his legs. He denies any cough, fever or other viral illnesses. Patient is concerned that his most recent stent placed in June 2019 and his RCA might be occluding. He did try to call his cleaning manager but was unable to get through. Patient states he takes daily aspirin but is not on any other medications. He has no other complaints at this time. Currently is not having any chest pain. Prior Similar Symptoms: No Past Medical History - Allergies and Home Meds Allergies/Adverse Reactions: Allergies atorvastatin [From Lipitor] Allergy (Verified 11/12/19 10:23) Shortness of breath metoprolol Allergy (Verified 11/12/19 10:44) dyspnea, chest tightness rosuvastatin [From Crestor] Allergy (Verified 11/12/19 10:23) Rash ticagrelor [From Brilinta] Allergy (Verified 11/12/19 10:23) Rash Primary Care Physician: Zaida Alaniz MD [Primary Care Provider] - Bulmaro Moay MD [STAFF PHYSICIAN] - Past Medical History: - - Coronary artery disease, hypertension, hyperlipidemia Surgical History: total hip arthroplasty, total knee arthroplasty, - - neck fusion and cavernous hemangioma surgery, cardiac stent x2 Smoking Status: Never smoker - Family History Maternal Family History: Family History (Last Reviewed 11/12/19 @ 11:[address] Bulmaro Moya MD) Father CAD (coronary artery disease) Family History: Reports: No pertinent history Review of Systems General: Reports: Weight loss - Intentional. Denies: Chills, Fever, Sweats Eyes: Denies: Visual changes - bilaterally, Diplopia ENT: Denies: Rhinorrhea, Sore throat Cardiovascular: Reports: Chest pain - Tightness. Denies: Palpitations Respiratory: Denies: Dyspnea, Cough, Dyspnea on exertion Gastrointestinal: Reports: Nausea. Denies: Abdominal pain, Vomiting, Diarrhea, Melena, Hematochezia Genitourinary: Denies: Dysuria, Hematuria, Frequency Musculoskeletal: Denies: Back pain, Extremity Pain Skin: Denies: Rash, Wounds Neurological: Denies: Headache, Weakness, Numbness Psych: Denies: Suicidal thoughts, Suicidal ideations Physical Exam Vital Signs/Narrative: Vital Signs Temp Pulse Resp BP Pulse Ox 03/23/20 22:55 97.2 F L 85 18 144/89 H 96 Inital Vital Signs reviewed: Yes General: Well nourished, Well developed, No Acute Distress Head: Normocephalic, Atraumatic Eyes: Perrl, EOMI ENT: Moist mucous membranes, No rhinorrhea Neck: Supple, Nontender, No JVD Cardiovascular: Regular rate, Regular rhythm, No murmurs, - - 2+ pulses in all extremities Respiratory: No distress, CTA bilaterally, Chest nontender. Negative for: Wheezing, Diminished Abdomen: Soft, Nontender, Nondistended, Normal bowel sounds Back: Nontender, Normal Inspection Extremities: Nontender, No edema Skin: Normal color, No rash Neurological: Alert, Oriented x3, Cranial nerves II-XII grossly intact, Normal Strength, Normal Sensation. Negative for: Confused, Disoriented Psychological: Normal affect, Normal Mood Diagnostic/Tx/Re-eval Chest X-Ray - ED: 1 View, Read by ED Physician, Read by Radiologist, No Acute Disease Clinical Impression(s) from Imaging Studies Chest X-Ray 03/23/20 23:11 IMPRESSION: Normal x-ray examination of the chest. Electronically Signed: Sushil Dunn MD at 23:49 EST , Service support , Laboratory Data 03/23/20 03/23/20 03/23/20 23:17 23:20 23:25 WBC 6.6 RBC 4.62 Hgb 14.8 Hct 41.6 MCV 90.0 MCH 32.0 MCHC 35.6 RDW Std Deviation 40.3 RDW Coeff of Trevon 12.4 Plt Count 221 MPV 9.7 Immature Gran % (Auto) 0.300 Neut % (Auto) 62.6 Lymph % (Auto) 23.6 [place] % (Auto) 9.7 Eos % (Auto) 3.2 Baso % (Auto) 0.6 Absolute Neuts (auto) 4.1 Absolute Lymphs (auto) 1.56 Nucleated RBC % 0 D-Dimer Quant (PE/DVT) 0.29 Sodium 135 L Potassium 3.2 L Chloride 103 Carbon Dioxide 24.0 Anion Gap 8 BUN 12 Creatinine 0.77 Estim Creat Clear Calc 117.13 Est GFR (MDRD) Af Amer 132 Est GFR (MDRD) Non-Af 109 BUN/Creatinine Ratio 15.6 Glucose 120 H Calcium 9.7 Total Bilirubin 0.70 AST 31 ALT 55 Alkaline Phosphatase 86 Troponin I < 0.015 Total Protein 7.3 Albumin 4.3 Globulin 3.0 Albumin/Globulin Ratio 1.4 Urine Color Urine Clarity Urine pH Ur Specific [place] Urine Protein Urine Glucose (UA) Urine Ketones Urine Occult Blood Urine Nitrite Urine Bilirubin Urine Urobilinogen Ur Leukocyte Esterase Urine RBC Urine WBC Ur Squamous Epith Cells Amorphous Sediment Urine Bacteria Urine Mucus 03/23/20 03/24/20 23:45 02:05 WBC RBC Hgb Hct MCV MCH MCHC RDW Std Deviation RDW Coeff of Trevon Plt Count MPV Immature Gran % (Auto) Neut % (Auto) Lymph % (Auto) [place] % (Auto) Eos % (Auto) Baso % (Auto) Absolute Neuts (auto) Absolute Lymphs (auto) Nucleated RBC % D-Dimer Quant (PE/DVT) Sodium Potassium Chloride Carbon Dioxide Anion Gap BUN Creatinine Estim Creat Clear Calc Est GFR (MDRD) Af Amer Est GFR (MDRD) Non-Af BUN/Creatinine Ratio Glucose Calcium Total Bilirubin AST ALT Alkaline Phosphatase Troponin I < 0.015 Total Protein Albumin Globulin Albumin/Globulin Ratio Urine Color Yellow Urine Clarity Clear Urine pH 6.5 Ur Specific [place] 1.015 Urine Protein Negative Urine Glucose (UA) Normal Urine Ketones Negative Urine Occult Blood Negative Urine Nitrite Negative Urine Bilirubin Negative Urine Urobilinogen Normal Ur Leukocyte Esterase Negative Urine RBC 0 SEEN Urine WBC 0 SEEN Ur Squamous Epith Cells 0 SEEN Amorphous Sediment 1+ Urine Bacteria 0 SEEN Urine Mucus 0 SEEN - Rhythm Strip Rhythm Strip: Sinus Rhythm Rate: 92 Ectopy: None - EKG Initial EKG Interpretation: Sinus Rhythm, - - Normal sinus rhythm at a rate of 92 Normal axis Normal intervals Normal ST segments No change compared to prior EKG on 06/15/2019 - Medical Decision Making Patient is evaluated for concern medication reaction to temazepam as well as intermittent episodes of chest pressure and general feeling of unwellness. He appears nontoxic in no acute distress. Vital signs are stable. EKG is not consistent with ACS. Patient does have a history of coronary artery disease and his heart score is 3. Troponin is negative x2. Patient's D-dimer is negative. He does not have any significant electrolyte abnormalities. He does have a very mild hypokalemia and is given potassium supplementation x1 in the ER. Patient does not have any obvious signs of infection or dehydration. Patient is concerned that some of his symptoms might be secondary to his difficulty sleeping/sleep deprivation as he has not been sleeping well because of going off of his CPAP. In addition his blood pressure is on the higher side however he does not have findings consistent with a hypertensive emergency. Patient is counseled the exact cause of his symptoms is not clear however he is given IV fluids and is feeling better by time of discharge. He will refrain from taking further temazepam and follow-up with his cleaning manager for further cardiac ev aluation/stress test as needed. Patient is counseled on signs and symptoms requiring return to the emergency room. Patient verbalizes agreement and understand this plan. Patient discharged home in stable and improved condition. ED Disposition - Plan for ED Patient: Disposition: Home or Assisted Living Diagnosis: Medication reaction, Chest tightness, Hypokalemia, Hypertension Instructions: ED Chest Pain, Uncertain Cause Referrals: Zaida Alaniz MD [Primary Care Provider] - Bulmaro Moya MD [STAFF PHYSICIAN] -
[2020-03-23 23:42] LABS: Absolute Lymphocyte Count 1.56 X10^3/uL (0.83-4.51); Absolute Neutrophil Count 4.1 X10^3/uL (2.0-7.7); Basophil# 0.04 X10^3/uL; Basophil% 0.6 % (0-1); Eosinophil# 0.21 X10^3/uL; Eosinophils% 3.2 % (0-5); Hematocrit 41.6 % (40-54); Hemoglobin 14.8 g/dL (13.0-16.5); Lymphocyte # 1.56 X10^3/ul (4.0); Lymphocyte % 23.6 % (19-41); Mean Corp Hgb Conc 35.6 g/dL (32-36); Mean Platelet Vol. 9.7 fl (6.2-12.0); Monocyte# 0.64 X10^3/uL; Monocyte% 9.7 % (0-10); NRBC Flagged by Analyzer 0 % (0-5); Neutrophil # 4.14 X10^3/uL (2.7-7.7); Neutrophil % 62.6 % (47-70); Platelet Count 221 K/mm3 (150-450); RBC Distribution Width CV 12.4 % (11.6-14.6); RBC Distribution Width SD 40.3 fl (35.1-43.9); Red Blood Count 4.62 M/mm3 (4.6-6.2); White Blood Count 6.6 K/mm3 (4.4-11.0)
[2020-03-23 23:50] LABS: Bacteria 0 SEEN /hpf (None Seen); Color, Urine Yellow (Yellow); Glucose, Dipstick Normal (Normal); Ketone-Dipstick Negative (Negative); Leukocyte Esterase-Dipstick Negative /ul (Negative); Mucous, Urine 0 SEEN /hpf (<or=2+); Nitrite-Dipstick Negative (Negative); Occult Blood-Urine Negative /ul (Negative); Protein-Dipstick Negative (Negative); Red Blood Cells-Urine 0 SEEN /hpf (0-5); Specific Gravity, Urine 1.015 (1.002-1.030); Squamous Epithelial Cells - UA 0 SEEN /hpf (0-5); Urine Bilirubin Dipstick Negative (Negative); Urine Clarity Clear (Clear); Urine Urobilinogen Normal (Normal); Urine pH 6.5 (5.0 - 8.0); White Blood Cells 0 SEEN /hpf (0-5)
[2020-03-23 23:55] LABS: D-Dimer Quantitative (DVT/PE) 0.29 FEU/ug/m (0.27-0.49)
[2020-03-23] MEDS: 0.9% Normal Saline 1,000 ML 999 ML IV (23:55)
[2020-03-23 23:56] LABS: Amorphous Sediment 1+
[2020-03-23 23:56] LABS: ALB/GLOB Ratio 1.4 RATIO (0.9-2.4); AST(SGOT) 31 U/L (15-37); Alanine Aminotransfer ALT/SGPT 55 U/L (16-61); Albumin, Serum 4.3 g/dL (3.2-5.0); Alkaline Phosphatase 86 U/L (45-117); Anion Gap 8 (5-15); BUN 12 mg/dL (7-18); BUN/Creat Ratio 15.6 RATIO (10-20); Calcium,Total 9.7 mg/dL (8.5-10.1); Chloride 103 mmol/L (98-107); Creatinine, Serum 0.77 mg/dL (0.70-1.30); EST Glomerular Filtration Rate 109 mL/min (>60); Est Glom Filt Rate - Afr Amer 132 mL/min (>60); Estimated Creatinine Clearance 117.13 ml/min; Glucose 120 mg/dL (74-106); Potassium 3.2 mmol/L (3.5-5.1); Protein, Total 7.3 g/dL (6.4-8.2); Sodium Level 135 mmol/L (136-145)
[2020-03-24 01:03] VITALS: BP 160/94; PULSE 74; RESP 20
[2020-03-24] MEDS: Potassium Chloride Oral Tablet 20 MEQ 40 MEQ PO (02:00)
[2020-03-24 02:55] VITALS: BP 163/70; PULSE 77; RESP 18; O2SAT 96
== END 2020-03-24 02:57 | disposition home or self-care (01) ==
PROVIDERS: Emergency Provider Emergency Medicine; PCP Internal Medicine
DX: R07.89 Other chest pain (principal); T43.595A Adverse effect of other antipsychotics and neuroleptics, initial encounter; E87.6 Hypokalemia; I10 Essential (primary) hypertension; I25.10 Atherosclerotic heart disease of native coronary artery without angina pectoris; Z95.5 Presence of coronary angioplasty implant and graft; E78.5 Hyperlipidemia, unspecified; Z79.899 Other long term (current) drug therapy
CPT/HCPCS: 71045; 80053; 81001; 84484; 85025; 85379; 93005; 96360; 96361; 99285; J7030; A4216